=== PATIENT | female | born 1945 | race Caucasian/White ===

== ENCOUNTER 2024-12-16 07:43 | Inpatient (IN) | payer OTHER, SELFPAY ==
[2024-12-03 10:53] VITALS: BMI 34.7
[2024-12-03 11:26] LABS: Hematocrit 39.2 % (37.0-47.0); Hemoglobin 13.1 g/dL (12.0-16.0); Mean Corp Hgb Conc. 33.4 g/dL (33.0-37.0); Mean Corpuscular Volume 91.2 fL (81.0-99.0); Nucleated Red Blood Cells % 0 %; Platelet Count 258 10^3/uL (130-400); Red Cell Dist. Width 12.5 % (11.5-14.5)
[2024-12-03 11:44] LABS: INR 1.01; PT 13.8 Sec (11.4-14.6)
[2024-12-03 12:03] LABS: ALT (SGPT) 14 U/L (0-35); AST (SGOT) 15 U/L (14-36); Albumin 4.3 g/dl (3.5-5.0); Alkaline Phosphatase 81 U/L (38-126); Blood Urea Nitrogen 23 mg/dl (7-17); Calcium 9.2 mg/dl (8.4-10.2); Carbon Dioxide 30 mmol/L (22-30); Chloride 96 mmol/L (98-107); Estimated Creatinine Clearance 70 ml/min; Glucose 101 mg/dl (70-99); Magnesium 1.6 mg/dl (1.6-2.3); Potassium 4.4 mmol/L (3.5-5.1); Sodium 131 mmol/L (135-145); Total Protein 6.6 g/dl (6.3-8.2); eGFR > 60.00
[2024-12-16] VITALS (15 sets, daily range): BP systolic 98–136; BP diastolic 55–91; BMI 34.8
[2024-12-16 11:08] LABS: ACT-LR - POC 211 Seconds (116-155)
[2024-12-16 11:31] LABS: ACT-LR - POC 218 Seconds (116-155)
--- NOTE | 2024-12-16 12:08 | ITS.CL.ABL ---
Mover Helper - Ablation
Ablation
Procedure Report:
ELECTROPHYSIOLOGY ABLATION STUDY
Concomitant watchman implant
DATE:: December 16, 2024����������������������������REFERRING: Dr. Lauro Crawford
INDICATION: Persistent supraventricular tachycardia in the form of atrial fibrillation.��Also with history of bleeding for concomitant watchman implant
HISTORY: See H and P.� As above
ANTIARRHYTHMIC DRUG: Atenolol
PRE-PROCEDURE RICO: No intracardiac thrombus
PRESENTING RHYTHM: Atrial fibrillation
'TIME-OUT':��called and confirmed.
SEDATION/ANESTHESIA:��provided via the anesthesia department using general anesthesia (LMA).
INTRAVENOUS/ARTERIAL ACCESS:
Right femoral venous -8Fr
Left femoral venous - 8 Fr, 6 Fr
Letptm-xs-vtsit suture
Ultrasound guidance for bilateral femoral vein access was utilized by me to obtain access with demonstration of normal anatomy
CHADS-VASC Score:
HAS-Bled Score
PROCEDURE:
1.��A decapolar CS catheter was placed within the CS for mapping and pacing.��This was also used as the reference catheter for the 3-D map. We performed pulmonary vein isolation and posterior wall isolation first and then performed watchman implant
after PVI plus posterior wall isolation. I performed transseptal puncture for the watchman implant and Dr. Gordillo performed the Watchman device implantation. After PVI plus posterior wall isolation the watchman sheath was exchanged over a
radiofrequency wire and pigtail catheter was stationed within the left atrial appendage and venogram demonstrates a 22 mm ostium and a windsock pattern and a 27 mm device was delivered meeting Pass criteria. 10 to 15% compression, no movement tug
test, no leak, and ostial position. The device was deployed and sheath and catheters withdrawn and protamine was given.
2. The intracardiac ultrasound catheter was positioned in the RA to identify the FO for targeting of transseptal puncture, assist��in identification of the pulmonary vein ostia, monitoring pre and post ablation pulmonary vein flow velocities,
monitoring for 'bubble' formation during RF application as a sign of thermal injury,��and to monitor for pericardial effusion during mapping and ablation procedure.���Left atrial size, LV ejection fraction, and pulmonary vein flows were monitored
pre and post ablation procedure. The other valves were inspected and found to be free of significant regurgitation or stenosis.
3.��Half of the calculated heparin bolus was administered prior to the first transeptal puncture.��Transseptal puncture was performed to diagnose RA and LA pressure so that safety of LA mapping and ablation could be further assessed, and to access
the left atrium and pulmonary veins for mapping and ablation.��This entailed advancing an 16.8 Fr SL-1 sheath with dilator into the superior vena cava and withdrawing both (monitoring intracardiac ultrasound, fluoroscopy and tip pressure) with the
tip oriented toward the atrial septum.��The fossa ovalis was engaged (indicated by sudden displacement of the sheath tip as well as tenting of the fossa seen on intracardiac ultrasound).��Left atrial access required a pass with the [place]
needle extended.��Left atrial catheter position was confirmed by pressure monitoring (RA mean pressure 6 mm Hg and LA mean presure 12 mm Hg), LA saturation (99%),�liter fluid was given due to left atrial pressure of 12 as well as fluoroscopy.��The
sheath was advanced over the dilator and positioned in the left atrium.��The remainder of the calculated heparin bolus was administered and heparin was
infused to maintain ACT at 300 -350 seconds throughout the case.
4.��RA pacing was performed via the proximal decapolar poles and LA pacing was performed via the distal decapolr poles.
5. A quadrapolar catheter was first positioned at the His position for His Bundle recording which was tagged via the 3-D Navex sytem, and then passed to the RVA for RV pacing and recording.
6. The Penta spline and grid catheter were placed in each of the LIPV, LSPV, RSPV and the RIPV.��
7.��Next, a 3-D map was created using Navex.���A 3-D reconstructed CT image was compared to the 3-D Navex map to assist in anatomic interpretation, mapping and ablation.��The CT image and the NavX image were fused.
8. A total of 23 lesions were given primarily to the posterior wall. There was ingrowth into the left superior pulmonary vein at the roof and posterior wall and all of in basket poses were given to the antrum and roof just outside the left
superior pulmonary vein reisolation this vein. Flower post was then given to the roof posterior wall and floor of the left atrium as atrial fibrillation persisted. After entrance block was fashioned and the roof posterior wall and floor of the
left atrium as well as all 4 pulmonary veins we converted the patient to sinus rhythm and entrance and exit block was confirmed in all 4 pulmonary veins as well as the roof posterior wall and floor of the left atrium. No other inducible arrhythmias
and once this was completed we then transition to the watchman implant as above in #1.
9. Normal sinus node and AV node function noted.
TOTAL FLOURO TIME: 14.1 minutes 143 mGy
TOTAL RF DURATION: 0 minutes
REVERSAL OF HEPARIN: 35 mg of protamine, slow IV administration
COMPLICATIONS:
None
Intracardiac US shows no pericardial effusion post ablation.
SUMMARY:��
Complex left atrial mapping and ablation.
Reisolation of left superior pulmonary vein, roof posterior wall and floor of the left atrium substrate ablation as above, 27 mm Watchman implant as a concomitant procedure. For the watchman implant Brodie was the device implant or Wagner
performed transseptal puncture.
RECOMMENDATIONS:
1. Ambulate in 4 hours
2. Resume anticoagulation
3.� Follow-up RICO 3 months after procedure date to assess for leak and device related thrombus and if the device is without thrombus or leak would transition to aspirin only.
4.� Anticipate discharge on Sunday, December 17.
Copy to: Dr. Lauro Crawford
--- NOTE | 2024-12-16 14:20 | PTCARENOTE ---
received patient from track laborer, monitor placed sinus brigida, VSS. patient is 'sleepy' but easily aroused. patient is lying flat in bed, bilat fem. veins have figure 8 sutures, dsg. D/I, distal pulses by doppler. patient is oriented to room and
surroundings. pt. understands post PVI/watchman protocol.
--- NOTE | 2024-12-16 18:32 | PTCARENOTE ---
OOB with assist of 1 and walker. patient was stiff when she first got up, used walker to ambulate to BR, voided, pure wick removed. patient presently in a chair, bialt groins intact.
[2024-12-16] MEDS: ELIQUIS 5 MG PO (19:30)
--- NOTE | 2024-12-16 21:02 | PTCARENOTE ---
Patient received at change of shift out of bed to the chair. Bilateral groin dressings C/D/I, pedal pulses present with doppler. The patient denies pain and offers no complaints. Sinus rhythm on telemetry. Oxygen saturation 94-95% on room air.
Voiding in bathroom without difficulty. Plan of care discussed. Call trujillo within reach. Care ongoing.
[2024-12-16] MEDS: PRAVACHOL 40 MG PO (21:18)
[2024-12-17 04:03] VITALS: BP 131/72
[2024-12-17 04:38] LABS: Hematocrit 31.2 % (37.0-47.0); Hemoglobin 10.7 g/dL (12.0-16.0); Mean Corp Hgb Conc. 34.3 g/dL (33.0-37.0); Mean Corpuscular Volume 89.7 fL (81.0-99.0); Platelet Count 221 10^3/uL (130-400); Red Cell Dist. Width 12.5 % (11.5-14.5)
[2024-12-17 04:58] LABS: Blood Urea Nitrogen 21 mg/dl (7-17); Calcium 8.6 mg/dl (8.4-10.2); Carbon Dioxide 25 mmol/L (22-30); Chloride 101 mmol/L (98-107); Estimated Creatinine Clearance 82 ml/min; Glucose 118 mg/dl (70-99); Magnesium 1.5 mg/dl (1.6-2.3); Potassium 4.0 mmol/L (3.5-5.1); Sodium 131 mmol/L (135-145); eGFR > 60.00
[2024-12-17 07:14] VITALS: BP 150/118
[2024-12-17 07:16] VITALS: BP 145/78
--- NOTE | 2024-12-17 07:22 | W.PN.CARDCBS ---
Addendum entered and electronically signed by Kem Wagner MD 12/17/24 12:10:
Patient seen and examined
Agree with KWESI Rowan's note and assessment
Agree with KWESI Rowan's plan
No chest pain overnight in sinus rhythm on telemetry with occasional PACs
Exam:
Bilateral groins clean dry and intact
Cor regular
Remainder as KWESI Rowan's exam
Impression:
Persistent Afib prior PVI 2020
Post PVI 12/16/24
Ambulatory dysfunction with frequent falls
Post Watchman 27mm implant 12/16/24
Hypomagnesium
HTN
Hyperlipidemia
GERD
PreDM
Gout
Obesity BMI 35
SUMMARY:��
Complex left atrial mapping and ablation.
Reisolation of left superior pulmonary vein, roof posterior wall and floor of the left atrium substrate ablation as above, 27 mm Watchman implant as a concomitant procedure. For the watchman implant Brodie was the device implant or Wagner
performed transseptal puncture.
Plan:
post ablation and Watchman device, feels good
groin stable
tele SR
Mg 1.5 - replete to keep >2 and K >4
Hbg dropped from 13.1 to 10.7, ? dilutional
recheck cbc, Mg in 2 weeks
OAC Eliquis
continue atenolol
Activity restrictions reviewed
f/u Dr. Crawford in 3 mo
home today
Addendum entered and electronically signed by REJI Prince 12/17/24 08:45:
PCP correction - Franky Rivera DO
Original Note:
Today's Communication / Plan
-
post Ablation and watchman, stable for d/c home
Impression / Plan
-
PCP: Kem Bryant MD
CDY: Lauro Crawford MD
Impression:
Persistent Afib prior PVI 2020
Post PVI 12/16/24
Ambulatory dysfunction with frequent falls
Post Watchman 27mm implant 12/16/24
Hypomagnesium
HTN
Hyperlipidemia
GERD
PreDM
Gout
Obesity BMI 35
SUMMARY:��
Complex left atrial mapping and ablation.
Reisolation of left superior pulmonary vein, roof posterior wall and floor of the left atrium substrate ablation as above, 27 mm Watchman implant as a concomitant procedure. For the watchman implant Brodie was the device implant or Wagner
performed transseptal puncture.
Plan:
post ablation and Watchman device, feels good
groin stable
tele SR
Mg 1.5 - replete to keep >2 and K >4
Hbg dropped from 13.1 to 10.7, ? dilutional
recheck cbc, Mg in 2 weeks
OAC Eliquis
continue atenolol
Activity restrictions reviewed
f/u Dr. Crawford in 3 mo
home today
Progress Note - Engineer Technician
Subjective
Date of Service: December 17, 2024
denies cp, sob
Objective
Labs:
12/17/24 04:10
12/17/24 04:10
Labs
Hgb 10.7 g/dL (12.0-16.0) L 12/17/24 04:10
Hct 31.2 % (37.0-47.0) L 12/17/24 04:10
Plt Count 221 10^3/uL (130-400) 12/17/24 04:10
PT 13.8 Sec (11.4-14.6) 12/03/24 11:01
INR 1.01 12/03/24 11:01
Sodium 131 mmol/L (135-145) L 12/17/24 04:10
Potassium 4.0 mmol/L (3.5-5.1) 12/17/24 04:10
BUN 21 mg/dl (7-17) H 12/17/24 04:10
Creatinine 0.5 mg/dL (0.6-1.0) L 12/17/24 04:10
Glucose 118 mg/dl (70-99) H 12/17/24 04:10
Vital Signs and I&O:
Vital Signs
Temp Pulse Resp BP Pulse Ox
97.5 F 67 16 131/72 98
12/17/24 07:16 12/17/24 06:00 12/17/24 07:16 12/17/24 04:03 12/17/24 07:16
Vital Signs
Temp Pulse Resp BP Pulse Ox
97.5 F 67 16 131/72 98
12/17/24 07:16 12/17/24 06:00 12/17/24 07:16 12/17/24 04:03 12/17/24 07:16
Intake & Output
12/15/24 12/16/24 12/17/24 12/18/24
06:59 06:59 06:59 06:59
Intake Total 2180 / 2180
Output Total 1400 / 1400
Balance 780 / 780
Physical Exam
Physical Exam
NAD, AOX3
S1, S2, RRR
CTAB, non labored, no wheeze
SNTND bsx4
b/l fem site c/d/i no HT, soft
[2024-12-17] MEDS: ZESTRIL 10 MG PO (07:43)
[2024-12-17] MEDS: PROTONIX 40 MG PO (07:43)
[2024-12-17] MEDS: TENORMIN 50 MG PO (07:43)
[2024-12-17] MEDS: ORETIC 12.5 MG PO (07:43)
[2024-12-17] MEDS: ELIQUIS 5 MG PO (07:43)
[2024-12-17] MEDS: MAGNESIUM OXIDE 500 MG PO (07:43)
--- NOTE | 2024-12-17 09:05 | W.DS.TRANS ---
DC Summary - Deck[employer]
-
Discharge Instructions:
Sleep Apnea Risk Low
Discharge Diagnosis/Procedures AFib, s/p watchman implant and ablation
Diet Low Cholesterol
Driving Restrictions No driving for 24 hours
Blood Work Check CBC, Magnesium in 2 weeks
Others Tests YOUR RICO IS SCHEDULED FOR 03/19/2025 AT [facility]. YOU WILL GET A PHONE
CALL WITH INSTRUCTIONS AND TIME OF ARRIVAL.
Instructions:
Stand-Alone Forms: DC Instructions- Cath/EP Lab
Changes to Home Medications: No
Discharge Medications:
DC Medications w/original date entered in [employer]
Herbal Laxative 1 tab PO QPM Supplement 10/14/20
apixaban 5 mg tablet (Eliquis) 5 mg PO BID Blood Clot Prevention/Tx 10/14/20
atenolol 50 mg tablet 50 mg PO DAILY Blood Pressure 10/14/20
esomeprazole magnesium 40 mg capsule,delayed release (Nexium) 40 mg PO DAILY Gastrointestinal Issue 10/14/20
pravastatin 40 mg tablet 40 mg PO HS High Cholesterol 10/14/20
lisinopril 10 mg-hydrochlorothiazide 12.5 mg tablet 1 tab PO DAILY Blood Pressure 11/28/24
prednisone 10 mg tablet 10 mg PO .TIDPRN GOUT EXACERBATION 11/28/24
acetaminophen 500 mg tablet (Tylenol Extra Strength) 1,000 mg PO Q6H PRN pain 12/16/24
Home Medication Changes
Pending Results: No
--- NOTE | 2024-12-17 10:22 | PTCARENOTE ---
The patient is aaox3, vital signs are stable. NSR is noted on the monitor. Her right groin dressing has scant marked drainage that is unchanged. Her left groin dressing is c/d/i. Positive pedal pulses are noted BL. She has no complaints of pain or
sob.
--- NOTE | 2024-12-17 11:51 | ITS.CL.PN ---
Addendum entered and electronically signed by Júnior oGrdillo MD 12/18/24 22:48:
Corrected Date of Procedure: 12/16/2024
Original Note:
Drier And Grinder Tender - Procedure Note
Procedure
Procedure Note:
WATCHMAN LEFT ATRIAL APPENDAGE OCCLUSION REPORT
Date of Procedure: 12/17/2024
Referring: Dr. Lauro Crawford MD
Indication: atrial fibrillation with high bleeding risk and high stroke risk
Operators: Júnior Gordillo MD, PhD (interventional cardiology); Dr. Kem Wagner MD (electrophysiology); Dr. Gareth Dunbar MD (cardiac imaging)
Anesthesia: general anesthesia provided by the anesthesia staff
PROCEDURE: left atrial appendage occlusion with a 27 mm Watchman FLX
HEMODYNAMIC DATA
LA 12 mmHg
PROCEDURE NARRATIVE:
The patient was intubated and sedated by anesthesiology and then prepped and draped in standard sterile fashion. Ablation for atrial fibrillation including transeptal access was performed by Dr. Kem Wagner (please see separate procedure note). At
the conclusion of the ablation, a RICO probe was placed by cardiology and imaging performed demonstrating no left atrial appendage thrombus and no pericardial effusion. To obtain transeptal access for the Watchman procedure, the exiting sheath was
exchanged for a Watchman double curve sheath in the left atrium over a wire.
A 5F pigtail catheter was advanced through the sheath and placed in the left atrial appendage, and an appendage gram was performed demonstrating anatomy suitable for a 27 mm Watchman FLX device. The device was prepped on the back table, the pigtail
catheter removed, and the device delivered via the sheath to the left atrial appendage by Dr. Gordillo. The device was deployed slowly under continuous fluoroscopic and RICO visualization. After deployment, RICO imaging was performed to assess PASS
criteria. The device demonstrated excellent positioning, anchor stability on tug test, appropriate sizing with 10-15% compression, and appropriate seal with no leak at 0, 45, 90, or 135 degrees. Given PASS criteria were met, the device was then
released.
The delivery system retracted back into the sheath and removed from the body. The sheath was retracted into the right atrium with RICO demonstrating no significant R-L shunt or pericardial effusion. The ICE catheter was removed from the body. The
sheaths were removed and the venotomy closed with [id number] knot. The patient was extubated and tolerated the procedure well.
CONCLUSIONS: successful deployment of a 27 mm Watchman FLX device under fluoroscopic and RICO guidance
RECOMMENDATIONS:
1. resume anticoagulation
2. repeat RICO in 3 months
Copy to: Dr. Lauro Crawford MD (landfill gas plant field technician); Dr. Kem Painting DO (PCP)
Signed: Júnior Gordillo MD, PhD
== END 2024-12-17 10:35 | disposition home or self-care (01) | DRG 317 ==
LOC: IVU 07:43
PROVIDERS: Internal Medicine Cardiovascular Disease; Nurse Practitioner; Student in an Organized Health Care Education/Training Program; ADMITTING PHYSICIAN Internal Medicine Cardiovascular Disease; FAMILY PHYSICIAN Family Medicine
PROC: 4A023FZ Measurement of Cardiac Rhythm, Percutaneous Approach (ICD-10-PCS; 2024-12-16)
PROC: 02L73DK Occlusion of Left Atrial Appendage with Intraluminal Device, Percutaneous Approach (ICD-10-PCS; 2024-12-16)
PROC: 02K83ZZ Map Conduction Mechanism, Percutaneous Approach (ICD-10-PCS; 2024-12-16)
PROC: B24BZZ4 Ultrasonography of Heart with Aorta, Transesophageal (ICD-10-PCS; 2024-12-16)
PROC: 4A0234Z Measurement of Cardiac Electrical Activity, Percutaneous Approach (ICD-10-PCS; 2024-12-16)
PROC: 02583ZZ Destruction of Conduction Mechanism, Percutaneous Approach (ICD-10-PCS; 2024-12-16)
DX: I48.19 Other persistent atrial fibrillation (principal); E87.1 Hypo-osmolality and hyponatremia; I10 Essential (primary) hypertension; I25.10 Atherosclerotic heart disease of native coronary artery without angina pectoris; K21.9 Gastro-esophageal reflux disease without esophagitis; E78.5 Hyperlipidemia, unspecified; E66.9 Obesity, unspecified; R73.03 Prediabetes; M10.9 Gout, unspecified; I47.10 Supraventricular tachycardia, unspecified; E83.42 Hypomagnesemia; M19.90 Unspecified osteoarthritis, unspecified site; Z68.35 Body mass index [BMI] 35.0-35.9, adult; Z79.01 Long term (current) use of anticoagulants
CPT/HCPCS: 33340; 36415; 80048; 80053; 83735; 85025; 85027; 85347; 85610; 86850; 86900; 86901; 87070; 93005; 93355; 93656; C1730; C1732; C1733; C1759; C1766; C1769; C1892; C1894; Q9967

== ENCOUNTER 2025-03-20 06:53 | Day surgery (SDC) | payer OTHER, SELFPAY ==
--- NOTE | 2025-03-20 08:31 | ITS.CL.CARDI ---
Imaging Tech - Cardioversion
Cardioversion
Procedure Report:
Date of Procedure: 03/20/25
Procedure: Cardioversion
Indication: Symptomatic atrial fibrillation
Performing Physician: Ignacio Rogers MD
Technique: The patient was brought to the holding area. Signed informed consent was obtained. A time out was called and performed. The patient was anesthetized by the anesthesia service. Anticoagulation status was reviewed and appropriate. R2 pads
were placed anteriorly and posteriorly. A 200 J synchronized biphasic shock restored normal sinus rhythm without significant bradycardia. There were no complications.
Conclusion: Uncomplicated cardioversion from atrial fibrillation to sinus rhythm.
Recommendation: Routine post cardioversion care. 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
== END 2025-03-20 08:58 | disposition home or self-care (01) ==
LOC: CATH 06:53
PROVIDERS: ATTENDING PHYSICIAN Internal Medicine Cardiovascular Disease; FAMILY PHYSICIAN Family Medicine; OTHER PHYSICIAN Internal Medicine Cardiovascular Disease
DX: I48.91 Unspecified atrial fibrillation (principal); I08.3 Combined rheumatic disorders of mitral, aortic and tricuspid valves; I70.0 Atherosclerosis of aorta; I08.8 Other rheumatic multiple valve diseases; Z79.01 Long term (current) use of anticoagulants; I10 Essential (primary) hypertension; R73.03 Prediabetes; Z79.899 Other long term (current) drug therapy
CPT/HCPCS: 93312; 93320; 93325; 92960; 93005